=== PATIENT | male | born 1935 | race Caucasian/White ===

== ENCOUNTER 2017-11-17 13:55 | Inpatient (IN) | payer MEDICARE, OTHER ==
[2017-11-17 14:48] LABS: Basophils % (A) 0 %; Eosinophils # (A) 0.1 k/uL (0-0.7); Eosinophils % (A) 1 %; HCT 39.6 % (39.0-53.0); HGB 13.6 gm/dL (13.0-17.5); Lymphocytes # (A) 1.1 k/uL (1.0-4.8); Lymphocytes % (A) 17 %; MCH 31.9 pg (25.0-35.0); MCHC 34.3 g/dL (31.0-37.0); MCV 92.8 fL (80.0-100.0); Mean Platelet Volume 7.3; Monocytes # (A) 0.5 k/uL (0-1.0); Monocytes % (A) 8 %; Neutrophils # (A) 4.4 k/uL (1.3-7.7); Neutrophils % (A) 70 %; Platelet Count 251 k/uL (150-450); RBC 4.26 m/uL (4.30-5.90); WBC 6.3 k/uL (3.8-10.6)
[2017-11-17 14:57] LABS: Partial Thromboplastin Time 22.4 sec (22.0-30.0); Prothrombin Time 9.9 sec (9.0-12.0)
[2017-11-17 15:06] LABS: Albumin 3.6 g/dL (3.5-5.0); Calcium 9.5 mg/dL (8.4-10.2); Potassium 4.3 mmol/L (3.5-5.1); Total Bilirubin 0.9 mg/dL (0.2-1.3); Total Protein 6.3 g/dL (6.3-8.2)
--- NOTE | 2017-11-17 15:08 | CT ---
EXAMINATION TYPE: CT brain wo con DATE OF EXAM: 11/17/2017 COMPARISON: NONE HISTORY: Patient complains of multiple episodes of aphasia. CT DLP: 1869 mGycm Automated exposure control for dose reduction was used. FINDINGS: Exam limited by motion artifact. There is an area of low attenuation in the left parietal lobe which could been the basis of acute to subacute ischemia. Moderate generalized degenerative change seen. Pe riventricular low attenuation compatible with remote microvascular ischemia. Calvarium is intact. No acute hemorrhage or midline shift. Intracranial atherosclerotic changes noted . IMPRESSION: DEGENERATIVE AND NONSPECIFIC WHITE MATTER CHANGES. THERE IS A AREA OF INTERMEDIATE DENSITY WITHIN THE LEFT PARIETAL LOBE WHICH COULD REPRESENT AREA OF ACUTE TO SUBACUTE ISCHEMIA. CORRELATE CLINICALLY AN D WITH MRI WARRANTED
--- NOTE | 2017-11-17 15:09 | XR ---
EXAMINATION TYPE: XR chest 2V DATE OF EXAM: 11/17/2017 COMPARISON: NONE HISTORY: Altered mental status TECHNIQUE: Frontal and lateral views of the chest are obtained. FINDINGS: There is no pleural effusion or pneumothorax seen. Minimal patchy density present at the left lung base. The cardiac silhouette size is within normal limits. Flowing anterior osteophytes ayana ng the thoracic vertebral bodies could be indicative of underlying diffuse idiopathic skeletal hypero stosis. There are overlying cardiac leads. The osseous structures are intact. IMPRESSION: There may be some minimal basilar atelectasis or scarring.
[2017-11-17] MEDS ORDERED: ONDANSETRON 4 MG/2 ML VIAL IVP PRN (15:45)
[2017-11-17] MEDS ORDERED: NALOXONE 0.4 MG/ML 1 ML VIAL IV PRN (15:45)
--- NOTE | 2017-11-17 15:45 | ED ---
Neuro HPI - General Chief Complaint: Neuro Symptoms/Deficit Stated Complaint: speech problems Time Seen by Provider: 11/17/17 14:14 Source: patient, family Mode of arrival: ambulatory Limitations: no limitations - History of Present Illness Is the patient presenting with stroke symptoms?: Yes Initial Comments: Patient complains of trouble speaking. He had a few episodes of trouble speaking over the last couple days, and another episode earlier this morning. This morning, was the worst episode where his speech was completely garbled. Currently, he is able to speak, but does have some slight word finding problems. He denies any weakness. He has no chest pain, belly pain, back pain. He has no shortness of breath, nausea or vomiting or diaphoresis. He did not take any medication for his symptoms. He did see his doctor for this yesterday. He has no lightheadedness or dizziness. He denies syncope or presyncope. - Related Data Home Medications: Home Medications Medication Instructions Recorded Confirmed Aspirin EC [Ecotrin Low Dose] 81 mg PO DAILY 11/17/17 11/17/17 Atorvastatin [Lipitor] 40 mg PO HS 11/17/17 11/17/17 Carvedilol [Coreg] 6.25 mg PO BID 11/17/17 11/17/17 Cyanocobalamin (Vitamin B-12) 1,000 mcg PO AC-BRKFST 11/17/17 11/17/17 [Vitamin B-12] Diltiazem Cd [Cardizem Cd] 180 mg PO HS 11/17/17 11/17/17 Isosorbide Mononitrate ER [Imdur] 30 mg PO DAILY 11/17/17 11/17/17 Losartan Potassium [Cozaar] 50 mg PO HS 11/17/17 11/17/17 Multivitamins, Thera [Multivitamin 1 tab PO AC-BRKFST 11/17/17 11/17/17 (formulary)] Allergies/Adverse Reactions: Allergies Allergy/AdvReac Type Severity Reaction Status Date / Time No Known Allergies Allergy Verified 11/17/17 15:25 Review of Systems ROS Statement: Those systems with pertinent positive or pertinent negative responses have been documented in the HPI. ROS Other: All systems not noted in ROS Statement are negative. General Exam Limitations: no limitations General appearance: alert, in no apparent distress Head exam: Present: atraumatic, normocephalic, normal inspection Eye exam: Present: normal appearance, PERRL, EOMI. Absent: scleral icterus, conjunctival injection, periorbital swelling ENT exam: Present: normal exam, mucous membranes moist Neck exam: Present: normal inspection. Absent: tenderness, meningismus, lymphadenopathy Respiratory exam: Present: normal lung sounds bilaterally. Absent: respiratory distress, wheezes, rales, rhonchi, stridor Cardiovascular Exam: Present: regular rate, normal rhythm, normal heart sounds. Absent: systolic murmur, diastolic murmur, rubs, gallop, clicks GI/Abdominal exam: Present: soft, normal bowel sounds. Absent: distended, tenderness, guarding, rebound, rigid Extremities exam: Present: normal inspection, full ROM, normal capillary refill. Absent: tenderness, pedal edema, joint swelling, calf tenderness Back exam: Present: normal inspection Neurological exam: Present: alert, oriented X3, CN II-XII intact Psychiatric exam: Present: normal affect, normal mood Skin exam: Present: warm, dry, intact, normal color. Absent: rash Stroke MDM - Lab Data Result diagrams: 11/17/17 14:31 11/17/17 14:31 Lab Results 11/17/17 11/17/17 11/17/17 Range/Units 14:31 14:31 14:31 WBC 6.3 (3.8-10.6) k/uL RBC 4.26 L (4.30-5.90) m/uL Hgb 13.6 (13.0-17.5) gm/dL Hct 39.6 (39.0-53.0) % MCV 92.8 (80.0-100.0) fL MCH 31.9 (25.0-35.0) pg MCHC 34.3 (31.0-37.0) g/dL RDW 13.0 (11.5-15.5) % Plt Count 251 (150-450) k/uL Neutrophils % 70 % Lymphocytes % 17 % Monocytes % 8 % Eosinophils % 1 % Basophils % 0 % Neutrophils # 4.4 (1.3-7.7) k/uL Lymphocytes # 1.1 (1.0-4.8) k/uL Monocytes # 0.5 (0-1.0) k/uL Eosinophils # 0.1 (0-0.7) k/uL Basophils # 0.0 (0-0.2) k/uL PT 9.9 (9.0-12.0) sec INR 1.0 (<1.2) APTT 22.4 (22.0-30.0) sec Sodium 138 (137-145) mmol/L Potassium 4.3 (3.5-5.1) mmol/L Chloride 104 (98-107) mmol/L Carbon Dioxide 25 (22-30) mmol/L Anion Gap 9 mmol/L BUN 19 (9-20) mg/dL Creatinine 1.00 (0.66-1.25) mg/dL Est GFR (CKD-EPI)AfAm 81 (>60 ml/min/1.73 sqM) Est GFR (CKD-EPI)NonAf 70 (>60 ml/min/1.73 sqM) Glucose 103 H (74-99) mg/dL Calcium 9.5 (8.4-10.2) mg/dL Total Bilirubin 0.9 (0.2-1.3) mg/dL AST 24 (17-59) U/L ALT 31 (21-72) U/L Alkaline Phosphatase 81 (38-126) U/L Troponin I (0.000-0.034) ng/mL Total Protein 6.3 (6.3-8.2) g/dL Albumin 3.6 (3.5-5.0) g/dL 11/17/17 Range/Units 14:31 WBC (3.8-10.6) k/uL RBC (4.30-5.90) m/uL Hgb (13.0-17.5) gm/dL Hct (39.0-53.0) % MCV (80.0-100.0) fL MCH (25.0-35.0) pg MCHC (31.0-37.0) g/dL RDW (11.5-15.5) % Plt Count (150-450) k/uL Neutrophils % % Lymphocytes % % Monocytes % % Eosinophils % % Basophils % % Neutrophils # (1.3-7.7) k/uL Lymphocytes # (1.0-4.8) k/uL Monocytes # (0-1.0) k/uL Eosinophils # (0-0.7) k/uL Basophils # (0-0.2) k/uL PT (9.0-12.0) sec INR (<1.2) APTT (22.0-30.0) sec Sodium (137-145) mmol/L Potassium (3.5-5.1) mmol/L Chloride (98-107) mmol/L Carbon Dioxide (22-30) mmol/L Anion Gap mmol/L BUN (9-20) mg/dL Creatinine (0.66-1.25) mg/dL Est GFR (CKD-EPI)AfAm (>60 ml/min/1.73 sqM) Est GFR (CKD-EPI)NonAf (>60 ml/min/1.73 sqM) Glucose (74-99) mg/dL Calcium (8.4-10.2) mg/dL Total Bilirubin (0.2-1.3) mg/dL AST (17-59) U/L ALT (21-72) U/L Alkaline Phosphatase (38-126) U/L Troponin I <0.012 (0.000-0.034) ng/mL Total Protein (6.3-8.2) g/dL Albumin (3.5-5.0) g/dL - Medical Decision Making Patient presents with several episodes of trouble speaking, mostly resolved at this time. However this current episode began greater than 5 hours ago. At this time he is not a TPA candidate. His CT does show a subacute infarct. I will obtain a neurology consultation. He will be admitted to the hospital. 11/17/17 15:44 Twelve-lead EKG interpreted by me as showing ventricular rate 68 bpm, normal SD interval, positive for left bundle branch block, no ST elevation or depression, interpreted by me as normal sinus rhythm. Past Medical History Past Medical History: Coronary Artery Disease (CAD), Chest Pain / Angina, Hyperlipidemia, Hypertension, Myocardial Infarction ([place]), Sleep Apnea/CPAP/BIPAP History of Any Multi-Drug Resistant Organisms: None Reported Past Psychological History: No Psychological Hx Reported Smoking Status: Never smoker Past Alcohol Use History: None Reported Past Drug Use History: None Reported Course Vital Signs 11/17/17 11/17/17 13:58 14:25 Temperature 98.4 F Pulse Rate 64 70 Respiratory 20 19 Rate Blood Pressure 140/93 163/75 O2 Sat by Pulse 98 97 Oximetry Disposition Clinical Impression: Cerebrovascular accident Disposition: ADMITTED IP TO THIS HOSP Condition: Serious Referrals: Cm Bonilla MD [Primary Care Provider] - 1-2 days Time of Disposition: 15:45
[2017-11-17] MEDS: CARVEDILOL 6.25 MG TAB PO SCH (18:51)
[2017-11-17] MEDS: ASPIRIN 81 MG PO SCH (18:51)
--- NOTE | 2017-11-17 21:17 | P.CNNES ---
History of Present Illness Consult date: 11/17/17 History of Present Illness: The patient an 81-year-old right-handed white male who states that Thursday while he was chatty with some neighbors he noticed some speech slurring which lasted for a few sentences about 6 seconds. The following day he had another episode was speaking to his grandson. His grandson is 13 years old and did not notice it but the patient realized that he had the same verbal slur that occurred the previous day. On Thursday he had another episode in front of his which lasted for about 30 seconds of slurred speech. His called his primary care physician and his PCP did see him that evening and decided to do outpatient carotid ultrasound. Today however the patient had a continued episode and it was decided that he should go to the emergency room. He has not had any further episodes. He states that he's never had slurred speech in the past. He takes baby aspirin daily. There is no history of stroke. He does have coronary artery disease hypertension hyperlipidemia. He denied any focal weakness numbness visual loss or any other neurologic complaint. He was able to read and write without difficulty. In the emergency room the patient had a CAT scan of the brain. This showed nonspecific white matter changes as well as an area of density within the left parietal lobe. Review of Systems Constitutional: Denies chills, Denies fever Cardiovascular: Denies chest pain, Denies shortness of breath Respiratory: Denies cough Musculoskeletal: Denies myalgias Neurological: Denies numbness, Denies weakness Psychiatric: Denies anxiety, Denies depression Past Medical History Past Medical History: Coronary Artery Disease (CAD), Chest Pain / Angina, Hyperlipidemia, Hypertension, Myocardial Infarction ([place]), Sleep Apnea/CPAP/BIPAP History of Any Multi-Drug Resistant Organisms: None Reported Past Psychological History: No Psychological Hx Reported Smoking Status: Never smoker Past Alcohol Use History: None Reported Past Drug Use History: None Reported Medications and Allergies Home Medications Medication Instructions Recorded Confirmed Type Aspirin EC [Ecotrin Low Dose] 81 mg PO DAILY 11/17/17 11/17/17 History Atorvastatin [Lipitor] 40 mg PO HS 11/17/17 11/17/17 History Carvedilol [Coreg] 6.25 mg PO BID 11/17/17 11/17/17 History Cyanocobalamin (Vitamin B-12) 1,000 mcg PO AC-BRKFST 11/17/17 11/17/17 History [Vitamin B-12] Diltiazem Cd [Cardizem Cd] 180 mg PO HS 11/17/17 11/17/17 History Isosorbide Mononitrate ER [Imdur] 30 mg PO DAILY 11/17/17 11/17/17 History Losartan Potassium [Cozaar] 50 mg PO HS 11/17/17 11/17/17 History Multivitamins, Thera [Multivitamin 1 tab PO AC-BRKFST 11/17/17 11/17/17 History (formulary)] Allergies Allergy/AdvReac Type Severity Reaction Status Date / Time No Known Allergies Allergy Verified 11/17/17 15:25 Physical Examination - Vital Signs Vital Signs: Vital Signs Temp Pulse Resp BP Pulse Ox 11/17/17 20:00 68 18 150/68 98 11/17/17 19:20 65 18 148/72 96 11/17/17 17:27 64 18 165/79 97 11/17/17 14:25 70 19 163/75 97 11/17/17 13:58 98.4 F 64 20 140/93 98 Intake and Output 11/17/17 11/17/17 11/17/17 06:59 14:59 22:59 Other: Weight 106.594 kg Patient Weight 11/18/17 06:59 Weight 106.594 kg - Constitutional General appearance: average body habitus, cooperative - EENT EENT: PERRL, hearing intact, vision intact - Respiratory Respiratory: chest non-tender, lungs clear - Cardiovascular Cardiovascular: regular rate, normal S1 - Integumentary Integumentary: normal - Neurologic Mental status he was awake alert and oriented 3 he was able to do simple calculations there is no a aphasia but he had some difficulty with repetition next Cranial2 through 12 are grossly intact next Motor examination revealed no focal weakness X Coordination was intact next Deep tendon reflexes symmetric next Plantar response was equivocal bilaterally Cranial nerve examination: PERRL, EOMI, VFF, V1/V2/V3 grossly intact, face symmetric, tongue midline Speech examination: intact Sensorimotor examination: intact Detailed motor examination: grossly full strength in all extremities - Psychiatric Psychiatric: mood/affect appropriate Results - Laboratory Findings CBC and BMP: 11/17/17 14:31 11/17/17 14:31 Abnormal Lab Findings: Abnormal Labs 11/17/17 11/17/17 14:31 14:31 RBC 4.26 L Glucose 103 H Assessment and Plan (1) Cerebrovascular accident Current Visit: Yes Status: Acute SNOMED Code(s): 445612523 Plan: The patient is a 81-year-old man who has been having intermittent episodes of slurred speech over the last several days. Resent to the emergency room today. Currently his neurologic examination is nonfocal however he does have some hesitancy and's speech at times with difficulty with repetition. Patient may have had a small stroke stroke in the left cortical region. Recommend MRI scan of the brain. Recommend carotid ultrasound and echocardiogram. Add Plavix to his current regimen ,continue close neuro checks
[2017-11-17 21:25] VITALS: BMI 33.6
[2017-11-17] MEDS: FAMOTIDINE 20 MG TAB PO SCH (23:24)
[2017-11-17] MEDS: DILTIAZEM CD 180 MG CAP.ER.24H PO SCH (23:24)
[2017-11-17] MEDS: ATORVASTATIN 40 MG TAB PO SCH (23:24)
[2017-11-17] MEDS: CLOPIDOGREL 75 MG TAB PO SCH (23:25)
[2017-11-17] MEDS: LOSARTAN 50 MG TAB PO SCH (23:25)
[2017-11-18] MEDS: CARVEDILOL 6.25 MG TAB PO SCH ×2 (06:07→16:05)
[2017-11-18] MEDS: CLOPIDOGREL 75 MG TAB PO SCH (08:40)
[2017-11-18] MEDS: FAMOTIDINE 20 MG TAB PO SCH ×2 (08:40→21:44)
[2017-11-18] MEDS: ASPIRIN 81 MG PO SCH (08:40)
--- NOTE | 2017-11-18 08:57 | MR ---
EXAMINATION TYPE: MR brain wo con DATE OF EXAM: 11/18/2017 COMPARISON: CT brain dated 11/17/2017 HISTORY: Stroke TECHNIQUE: Multiplanar, multisequence images of the brain and brainstem is performed without IV contrast. FINDINGS: Diffusion weighted images demonstrate a small focal area of restricted diffusion within the left parietal lobe measuring 1.1 cm with corresponding low ADC signal. Relative degree of restricted diffusion is low. Therefore this may be acute to subacute. This involves both bobby and white matter. Wedge-shaped area of T2/IR hyperintense edema is also seen. On T2-weighted axial sequences image #20 there is involvement of both the bobby and white matter again suggesting infarct rather than neoplasm . No T1 hyperintensity is seen to suggest acute hemorrhage. There is no extra-axial fluid collection. Numerous confluent areas of T2/IR hyperintensity are scatte red throughout the periventricular subcortical white matter, most commonly related to sequela of natural science curator jocelyn microangiopathy. These become most confluent in the periatrial white matter. Basilar artery and i nternal carotid artery flow voids are maintained as are the middle cerebral artery flow voids. Smalle r flow voids are difficult to visualize. Within the left cerebellar hemisphere there is a centrally T 2 hyperintense and FLAIR hypointense area with subtle T2 hyperintensity that could represent deep dev elop mental venous anomaly or prior infarct. Mild paranasal sinus mucosal thickening is seen throughout the paranasal sinuses. Mastoid air cells a re well aerated. The ventricular system and cisternal spaces are symmetrically prominent compatible w ith age-related volume loss. Midline structures demonstrate normal morphology. The craniocervical junction appears within normal limits. The dural venous sinuses appear patent. The visualized sinuses are clear and the globes are i ntact. IMPRESSION: 1. Findings most consistent with an acute to subacute small wedge-shaped left parietal infarct withou t hemorrhagic transformation. Given this probable evolving infarct has some lobular borders and there are only few images demonstrating both bobby-white matter involvement short-term follow-up enhanced M RI is recommended in 3-6 weeks to ensure no underlying mass. 2. Moderate burden nonspecific white matter change, most commonly on the basis of chronic microangiop athy and age-related cerebral atrophy. 3. Mild pansinusitis.
--- NOTE | 2017-11-18 09:41 | US ---
EXAMINATION TYPE: US carotid duplex BILAT DATE OF EXAM: 11/18/2017 COMPARISON: CLINICAL HISTORY: Stroke. Episodes of slurred speech EXAM MEASUREMENTS: RIGHT: Peak Systolic Velocity (PSV) cm/sec ----- Right CCA: 60.1 ----- Right ICA: 72.4 ----- Right ECA: 72.4 ICA/CCA ratio: 1.2 RIGHT: End Diastole cm/sec ----- Right CCA: 15.6 ----- Right ICA: 21.9 ----- Right ECA: 14.2 LEFT: Peak Systolic Velocity (PSV) cm/sec ----- Left CCA: 73.6 ----- Left ICA: 73.5 ----- Left ECA: 65.8 ICA/CCA ratio: 1.0 LEFT: End Diastole cm/sec ----- Left CCA: 18.0 ----- Left ICA: 27.4 ----- Left ECA: 12.0 VERTEBRALS (direction of flow): Right Vertebral: Antegrade Left Vertebral: Antegrade Rhythm: Normal Bilateral wall thickening. No elevated velocities or significant stenosis. Plaque seen in left bulb. Grayscale, color Doppler, spectral Doppler imaging performed of the carotid arteries IMPRESSION: No hemodynamic significant stenosis of the proximal internal carotid arteries bilaterall y by Doppler criteria, an indirect measurement of carotid stenosis
--- NOTE | 2017-11-18 15:11 | P.HPIM ---
History of Present Illness H&P Date: 11/18/17 Chief Complaint: slurring of speech 81 years old male with past medical history of coronary artery disease , hyperlipidemia, hypertension history of sleep apnea presents in with complaints of slurring of speech and difficulty finding words that started on Thursday. Patient noticed difficulties making words on Thursday that lasted a few seconds. On Thursday patient felt that he had similar symptoms with slurring of speech that improved by itself. Since he continued to have similar episode that lasted longer his called the primary care physician who recommended ultrasound of the carotid. Since patient continued to have these episode he decided to come to the ER. Carotid Dopplers were negative for any occlusion. CT brain was positive for subacute density in the left parietal lobe. 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 Since infarct had some lobular borders. Was a concern for underlying mass. A follow-up MRI was recommended in 3-6 weeks. On my evaluation, patient didn't have slurring of speech. He denies any sensory or motor deficit. No coordination sent seen. Patient is able to walk without any difficulty. He denies any confusion or history of seizure. Cardiology is consulted today for evaluation for cardioembolic stroke. EKG suggested normal sinus rhythm with left bundle branch block with no sign of arrhythmia seen on telemetry. Review of Systems Constitutional: Denies chills, Denies fever, Denies lethargy, Denies malaise, Denies poor appetite, Denies weakness, Denies weight loss Eyes: denies decreased vision, denies diplopia, denies discharge, denies pain Ears: deny: decreased hearing Ears, nose, mouth and throat: Denies dental pain, Denies headache, Denies nasal discharge, Denies nose pain Cardiovascular: Denies chest pain, Denies decreased exercise tolerance, Denies edema, Denies high blood pressure, Denies irregular heart beat, Denies palpitations, Denies paroxysmal nocturnal dyspnea, Denies rapid heart beat, Denies shortness of breath Respiratory: Denies congestion, Denies cough, Denies cough with sputum, Denies dyspnea, Denies home oxygen, Denies wheezing Gastrointestinal: Denies abdominal pain, Denies change in bowel habits, Denies coffee ground emesis, Denies early satiety, Denies excessive gas, Denies heartburn, Denies hematemesis, Denies hematochezia, Denies loss of appetite, Denies nausea, Denies vomiting Genitourinary: Denies dysuria, Denies flank pain, Denies kidney stones, Denies menorrhagia, Denies urgency, Denies urinary frequency Musculoskeletal: Denies gait dysfunction, Denies limitation of motion, Denies morning stiffness, Denies muscle cramps Integumentary: Denies rash, Denies wounds, Denies brittle nails, Denies change in hair/nails, Denies darkening of skin Neurological: Denies balance difficulties,endorses change in speech, Denies double vision, Denies gait dysfunction, Denies loss of vision, Denies motor disturbance, Denies numbness, Denies paralysis, Denies paresthesias, Denies seizures Psychiatric: Denies anxiety, Denies depression Endocrine: Denies excessive sweating, Denies excessive thirst, Denies high blood sugars, Denies palpitations Hematologic/Lymphatic: Denies easy bruising, Denies lymphadenopathy Past Medical History Past Medical History: Coronary Artery Disease (CAD), Chest Pain / Angina, Hyperlipidemia, Hypertension, Sleep Apnea/CPAP/BIPAP History of Any Multi-Drug Resistant Organisms: None Reported Past Surgical History: Joint Replacement Additional Past Surgical History / Comment(s): CLAUDINE KNEE REPLACEMENT Past Anesthesia/Blood Transfusion Reactions: No Reported Reaction Past Psychological History: No Psychological Hx Reported Smoking Status: Never smoker Past Alcohol Use History: None Reported Past Drug Use History: None Reported - Past Family History Father Family Medical History: Pneumonia, Prostate Disorder Mother Family Medical History: CVA/TIA, Myocardial Infarction ([place]) Medications and Allergies Home Medications Medication Instructions Recorded Confirmed Type Aspirin EC [Ecotrin Low Dose] 81 mg PO DAILY 11/17/17 11/17/17 History Atorvastatin [Lipitor] 40 mg PO HS 11/17/17 11/17/17 History Carvedilol [Coreg] 6.25 mg PO BID 11/17/17 11/17/17 History Cyanocobalamin (Vitamin B-12) 1,000 mcg PO AC-BRKFST 11/17/17 11/17/17 History [Vitamin B-12] Diltiazem Cd [Cardizem Cd] 180 mg PO HS 11/17/17 11/17/17 History Isosorbide Mononitrate ER [Imdur] 30 mg PO DAILY 11/17/17 11/17/17 History Losartan Potassium [Cozaar] 50 mg PO HS 11/17/17 11/17/17 History Multivitamins, Thera [Multivitamin 1 tab PO AC-BRKFST 11/17/17 11/17/17 History (formulary)] Allergies Allergy/AdvReac Type Severity Reaction Status Date / Time No Known Allergies Allergy Verified 11/17/17 15:25 Physical Exam Vitals: Vital Signs Temp Pulse Pulse Resp BP BP Pulse Ox 11/18/17 12:00 97.6 F 60 16 144/71 95 11/18/17 11:49 56 L 11/18/17 08:00 97.4 F L 56 L 18 147/69 100 11/18/17 04:00 97.5 F L 64 18 117/73 96 11/17/17 23:49 57 L 18 11/17/17 23:45 97.8 F 57 L 18 157/78 94 L 11/17/17 21:20 99.1 F 66 18 156/84 93 L 11/17/17 20:00 68 18 150/68 98 11/17/17 19:20 65 18 148/72 96 11/17/17 17:27 64 18 165/79 97 Intake and Output 11/17/17 11/18/17 11/18/17 22:59 06:59 14:59 Other: # Voids 2 Weight 109.5 kg 109.5 kg - Constitutional General appearance: cooperative, no acute distress, obese - EENT Eyes: anicteric sclerae, PERRLA, normal appearance ENT: hearing grossly normal - Neck Neck: no lymphadenopathy, normal ROM, no other, no rigidity, no stridor, no thyromegaly - Respiratory Respiratory: bilateral: CTA, negative: diminished, dullness, rales, rhonchi - Cardiovascular Rhythm: regular Heart sounds: normal: S1, S2 Abnormal Heart Sounds: no systolic murmur, no diastolic murmur, no rub, no S3 Gallop, no S4 Gallop, no click, no other - Gastrointestinal General gastrointestinal: normal bowel sounds, soft - Integumentary Integumentary: no rash - Neurologic Neurologic: CNII-XII intact positive for dysarthria, no sensory or motor deficit. [id number] test normal normal Babinski - Musculoskeletal Musculoskeletal: gait normal, strength equal bilaterally - Psychiatric Psychiatric: A&O x's 3, appropriate affect Results CBC & Chem 7: 11/17/17 14:31 11/17/17 14:31 Labs: Abnormal Lab Results - Last 24 Hours (Table) 11/17/17 Range/Units 14:31 Glucose 103 H (74-99) mg/dL Thrombosis Risk Factor Assmnt - DVT/VTE Prophylaxis DVT/VTE Prophylaxis: Pharmacologic Prophylaxis ordered - Choose All That Apply Any of the Below Risk Factors Present?: Yes Each Factor Represents 1 point: Swollen legs (current) Other Risk Factors: No Other congenital or acquired thrombophilia - If yes, enter type in comment: Yes Each Risk Factor Represents 5 Points: Stroke (< 1 month) Thrombosis Risk Factor Assessment Total Risk Factor Score: 6 Thrombosis Risk Factor Assessment Level: High Risk Assessment and Plan Plan: #1 left parietal cerebral vascular event - MRI positive for left parietal wedge- shaped infarct. Repeat MRI is recommended in 3-6 weeks for possible follow-up for underlying mass. Carotid Doppler negative for any occlusion. Echo pending. Cardiology consult placed for cardio embolic stroke. EKG negative for any arrhythmia. Normal sinus rhythm with left bundle branch block present. Patient may potentially need a RAUL. No history of DVT in the past. Continue aspirin and statin. Plavix initiated by Dr. Shirley #2 hypertension continue losartan 50 mg daily at bedtime along with Cardizem 180 mg daily at bedtime #3 history of coronary artery disease though patient never had a myocardial infarction. Continue Coreg, aspirin, Lipitor. #4 GI prophylaxis with Pepcid 20 mg twice a day #5 DVT prophylaxis with heparin 5000 every 12 #6 CODE STATUS full code Disposition likely discharge tomorrow
--- NOTE | 2017-11-18 17:30 | ECHOF ---
Referral Reason:Stroke MEASUREMENTS -------- HEIGHT: 180.3 cm WEIGHT: 109.3 kg BP: 117/73 RVIDd: 3.4 cm (< 3.3) IVSd: 1.3 cm (0.6 - 1.1) LVIDd: 4.5 cm (3.9 - 5.3) LVPWd: 1.3 cm (0.6 - 1.1) IVSs: 1.6 cm LVIDs: 3.9 cm LVPWs: 1.4 cm LA Diam: 4.0 cm (2.7 - 3.8) LAESV Index (A-L): 21.64 ml/m Ao Diam: 3.3 cm (2.0 - 3.7) AV Cusp: 1.6 cm (1.5 - 2.6) MV EXCURSION: 12.039 mm (> 18.000) MV EF SLOPE: 50 mm/s (70 - 150) EPSS: 0.4 cm MV E Elijah: 1.00 m/s MV DecT: 215 ms MV A Elijah: 0.72 m/s MV E/A Ratio: 1.38 FINDINGS -------- Sinus rhythm. This was a technically adequate study. The left ventricular size is normal. There is mild concentric left ventricular hypertrophy. Overa ll left ventricular systolic function is low-normal with, an EF between 50 - 55 %. The right ventricle is mildly enlarged. Normal LA size by volume 22+/-6 ml/m2. The right atrium is normal in size. There is mild aortic valve sclerosis. The mitral valve leaflets are mildly thickened. Mild mitral annular calcification present. The tricuspid valve appears structurally normal. There is no pulmonic regurgitation present. The aortic root size is normal. Normal inferior vena cava with normal inspiratory collapse consistent with estimated right atrial pre ssure of 5 mmHg. There is no pericardial effusion. CONCLUSIONS -------- 1. Sinus rhythm. 2. This was a technically adequate study. 3. The left ventricular size is normal. 4. There is mild concentric left ventricular hypertrophy. 5. Overall left ventricular systolic function is low-normal with, an EF between 50 - 55 %. 6. The right ventricle is mildly enlarged. 7. Normal LA size by volume 22+/-6 ml/m2. 8. The right atrium is normal in size. 9. There is mild aortic valve sclerosis. 10. The mitral valve leaflets are mildly thickened. 11. Mild mitral annular calcification present. 12. The tricuspid valve appears structurally normal. 13. There is no pulmonic regurgitation present. 14. The aortic root size is normal. 15. Normal inferior vena cava with normal inspiratory collapse consistent with estimated right atrial pressure of 5 mmHg. 16. There is no pericardial effusion. MATHEMATICS FACULTY MEMBER: Keyona Stiles RDCS
--- NOTE | 2017-11-18 20:49 | P.PN ---
Subjective Progress Note Date: 11/18/17 The patient is an 81-year-old man with history of intermittent speech disturbance for the past 5 days. Had an MRI today which showed an area of an possible infarction in the left parietal lobe. The patient is doing about the same. He has difficulty at times with word finding and has difficulty with repetition. He denies any other complaints such as weakness numbness visual changes dizziness or headache. His carotid ultrasound was unremarkable and his echocardiogram did not show any signs of thrombus. The patient is currently on aspirin as well as Plavix. He has no new complaints. Objective - Vital Signs Vital signs: Vital Signs Temp 97.5 F L 11/18/17 16:00 Pulse 62 11/18/17 16:00 Resp 18 11/18/17 16:00 BP 173/86 11/18/17 16:00 Pulse Ox 95 11/18/17 16:00 Intake & Output 11/18/17 11/18/17 11/19/17 06:59 18:59 06:59 Intake Total 240 Balance 240 Weight 109.5 kg Intake: Oral 240 Other: # Voids 2 - Constitutional General appearance: Present: average body habitus, cooperative - EENT Eyes: Present: EOMI, PERRLA - Neurologic Neurologic: Present: CNII-XII intact - Musculoskeletal Musculoskeletal: Present: strength equal bilaterally - Psychiatric Psychiatric: Present: A&O x's 3, intact judgment & insight (He does have some intermittent mild expressive aphasia) - Labs CBC & Chem 7: 11/17/17 14:31 11/17/17 14:31 Assessment and Plan (1) Cerebrovascular accident Current Visit: Yes Status: Acute SNOMED Code(s): 196693456 Plan: The patient has had a left parietal infarct. Radiology recommends follow-up study in 3 weeks. We will do an MRA of the carotid and vertebral arteries. His carotid ultrasound and echocardiogram were unremarkable. He is tolerating the addition of Plavix to his baby aspirin regimen. Will consult speech therapist the patient will have MRI of the brain with gadolinium scheduled outpatient in 2-3 weeks
[2017-11-18] MEDS: DILTIAZEM CD 180 MG CAP.ER.24H PO SCH (21:44)
[2017-11-18] MEDS: ATORVASTATIN 40 MG TAB PO SCH (21:44)
[2017-11-18] MEDS: LOSARTAN 50 MG TAB PO SCH (21:44)
[2017-11-18] MEDS: HEPARIN SODIUM,PORCINE 5,000 UNIT/ML 1 ML VIAL SQ SCH (21:45)
--- NOTE | 2017-11-19 08:33 | MR ---
EXAMINATION TYPE: MR angio head/neck wo con DATE OF EXAM: 11/19/2017 COMPARISON: MRI brain 11/18/2017 and carotid ultrasound 11/18/2017 HISTORY: 81-year-old male further evaluation after Stroke TECHNIQUE: Time of flight images focusing on the [place] of [place] as well as the neck carotid vascula ture were performed without contrast.. 2-D and 3-D postprocessing imaging is performed. FINDINGS: HEAD: No significant stenosis, arterial occlusion, or aneurysmal change is seen. NECK: Bovine configuration to the aortic arch. The common carotid and bilateral internal carotid arteries appear widely patent. The bilateral vertebral arteries also appear widely patent allowing for noncontrast technique. IMPRESSION: 1. Head: No significant stenosis, arterial occlusion, or aneurysmal change is seen. 2. Neck: Widely patent common and internal carotid arteries. The vertebral arteries also appear widel y patent allowing for noncontrast technique.
[2017-11-19] MEDS: HEPARIN SODIUM,PORCINE 5,000 UNIT/ML 1 ML VIAL SQ SCH (09:38)
[2017-11-19] MEDS: CARVEDILOL 6.25 MG TAB PO SCH (09:38)
[2017-11-19] MEDS: ASPIRIN 81 MG PO SCH (09:38)
[2017-11-19] MEDS: FAMOTIDINE 20 MG TAB PO SCH (09:38)
[2017-11-19] MEDS: CLOPIDOGREL 75 MG TAB PO SCH (09:38)
[2017-11-19 10:05] VITALS: TEMP 97.1
[2017-11-19 11:32] VITALS: BP 127/71; PULSE 62; RESP 18
[2017-11-19] MEDS ORDERED: ceFAZolin 1,000 MG in DEXTROSE/WATER 1 50ML.BAG IVPB STA (11:38)
--- NOTE | 2017-11-19 11:59 | P.DS ---
Providers Date of admission: 11/17/17 15:45 Attending physician: Sheila Alicia MD Consults: 11/17/17 15:46 Consult Physician Routine Consulting Provider: Tae Shirley Consult Reason/Comments: stroke Do you want consulting provider notified?: Yes 11/18/17 11:37 Consult Physician Routine Consulting Provider: Ruddy Ramsay Consult Reason/Comments: acute pariatal stroke Do you want consulting provider notified?: Yes Primary care physician: [facility] Course: 81 years old male with past medical history of coronary artery disease , hyperlipidemia, hypertension history of sleep apnea presents in with complaints of slurring of speech and difficulty finding words that started on Thursday. Patient noticed difficulties making words on Thursday that lasted a few seconds. On Thursday patient felt that he had similar symptoms with slurring of speech that improved by itself. Since he continued to have similar episode that lasted longer his called the primary care physician who recommended ultrasound of the carotid. Since patient continued to have these episode he decided to come to the ER. Carotid Dopplers were negative for any occlusion. CT brain was positive for subacute density in the left parietal lobe. 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 Since infarct had some lobular borders. Was a concern for underlying mass. A follow-up MRI was recommended in 3-6 weeks. On my evaluation, patient didn't have slurring of speech. He denies any sensory or motor deficit. No coordination sent seen. Patient is able to walk without any difficulty. He denies any confusion or history of seizure. Cardiology is consulted today for evaluation for cardioembolic stroke. EKG suggested normal sinus rhythm with left bundle branch block with no sign of arrhythmia seen on telemetry. 11/19 Carotid ultrasound was remarkable, echocardiogram did not show signs of thrombus. Neurology consult appreciated, recommends MRA of the carotid and vertebral arteries continue Plavix and aspirin and MRI of brain as outpatient. Discharge diagnoses #1 left parietal cerebral vascular event #2 hypertension #3 history of coronary artery disease The above impression and plan of care have been discussed and directed by signing physician. Bianca Sebastian nurse practitioner acting as scribe for signing physician. Patient Condition at Discharge: Good Plan - Discharge Summary Discharge Rx Participant: No New Discharge Prescriptions: New Clopidogrel [Plavix] 75 mg PO DAILY #30 tab Continue Multivitamins, Thera [Multivitamin (formulary)] 1 tab PO AC-BRKFST Losartan Potassium [Cozaar] 50 mg PO HS Isosorbide Mononitrate ER [Imdur] 30 mg PO DAILY Diltiazem Cd [Cardizem CD] 180 mg PO HS Carvedilol [Coreg] 6.25 mg PO BID Aspirin EC [Ecotrin Low Dose] 81 mg PO DAILY Cyanocobalamin (Vitamin B-12) [Vitamin B-12] 1,000 mcg PO AC-BRKFST Atorvastatin [Lipitor] 40 mg PO HS Discharge Medication List Aspirin EC [Ecotrin Low Dose] 81 mg PO DAILY 11/17/17 [History] Atorvastatin [Lipitor] 40 mg PO HS 11/17/17 [History] Carvedilol [Coreg] 6.25 mg PO BID 11/17/17 [History] Cyanocobalamin (Vitamin B-12) [Vitamin B-12] 1,000 mcg PO AC-BRKFST 11/17/17 [ History] Diltiazem Cd [Cardizem CD] 180 mg PO HS 11/17/17 [History] Isosorbide Mononitrate ER [Imdur] 30 mg PO DAILY 11/17/17 [History] Losartan Potassium [Cozaar] 50 mg PO HS 11/17/17 [History] Multivitamins, Thera [Multivitamin (formulary)] 1 tab PO AC-BRKFST 11/17/17 [ History] Clopidogrel [Plavix] 75 mg PO DAILY #30 tab 11/19/17 [Rx] Follow up Appointment(s)/Referral(s): Cm Bonilla MD [Primary Care Provider] - 11/26/17 10:30 am () Yasmin Shirley MD [STAFF PHYSICIAN] - 3 Weeks (Spoke to receptionist clerk. She will call you with an appointment time this afternoon. follow up with MRI in 4 weeks ) Alcides Reynoso MD [REFERRING] - 1 Week Patient Instructions/Handouts: Transesophageal Echocardiogram (DC), Cardiac Loop Recorder Insertion (DC), Stroke (DC) Discharge Disposition: HOME SELF-CARE
[2017-11-19] MEDS ORDERED: SODIUM CHLORIDE 0.9% 250 ML IV ONE (12:20)
[2017-11-19] MEDS ORDERED: MIDAZOLAM 2 MG/2 ML VIAL ONE (12:37)
[2017-11-19] MEDS ORDERED: MIDAZOLAM 2 MG/2 ML VIAL IV ONE (12:39)
[2017-11-19] MEDS ORDERED: LIDOCAINE 2% INJ 20 MG/ML SQ ONE (12:41)
--- NOTE | 2017-11-19 12:53 | CONS ---
CONSULTATION Mr. Vickers was admitted with a stroke. He had difficulty with his speech and he was evaluated by Neurology. The initial CT of the brain on 11/17 when he was admitted, shows an intermediate density within the left parietal lobe, which could represent an area of acute ischemia. His ECG showed sinus rhythm with a left bundle branch block and his telemetry has not shown any evidence for atrial fibrillation. He had an MRI of the brain the next day, which is yesterday and this showed acute/subacute small wedge- shaped left parietal infarct without hemorrhagic transformation. PAST HISTORY: He has a kettle coordinator at [facility], Dr. Jolly Reynoso who he sees on a regular basis, saw about a week back. His symptoms include trouble speaking and he cannot get his words out, it is completely garbled. He denies any chest discomfort, no undue shortness of breath. No dizziness or lightheadedness, coronary artery disease, history of myocardial infarction, obstructive sleep apnea, using a BiPAP mask, hypertension. MEDICATIONS: At Home included 81 mg of aspirin, atorvastatin 40 mg daily, carvedilol 6.25 mg twice daily. He also takes diltiazem 180 mg q.h.s., isosorbide, losartan, and multivitamins. ALLERGIES: No known drug allergies. REVIEW OF SYSTEMS: No fever, chills, or rigors. No cough or expectoration. No nausea, vomiting, diarrhea. No hematuria or dysuria. He has had a recent stroke and he is having great difficulty with his speech. No musculoskeletal complaints. PHYSICAL EXAMINATION: On examination, his blood pressure is 127/71 mmHg, pulse rate in the 60s, afebrile 97.1 degrees Fahrenheit, and respirations are normal. He looks comfortable. He is unable to express himself. He can barely gives a history. The history is mostly available from his . Breath sounds are equal bilaterally. No rhonchi, no crackles. Heart sounds S1, S2 normal. No murmurs, no gallops, no rub. ABDOMEN: Soft, nontender. Extremities are warm. IMPRESSION: Embolic stroke, mild carotid arthrosclerosis, Patient is on aspirin, statins. He has known coronary artery disease and suggested from a cardiac standpoint, this gentleman should have a loop monitor implanted since he has had a cryptogenic stroke. He is on medical treatment for carotid atherosclerosis. He has no significant carotid atherosclerosis. His LDL is 96. TSH is normal. Cardiac enzymes are normal. Electrolytes are normal. Hemoglobin is normal. I would suggest increasing the dose of atorvastatin to 80 mg p.o. daily. Continuing anti-platelet therapy. Neurology has recommended dual antiplatelet therapy. Atrial fibrillation should be ruled out H the atrial fibrillation is a definite concern here and I am recommending implantation of a loop monitor to look for silent episodes of atrial fibrillation which could explain an embolic stroke. If this were found, then his treatment plan changes and he should be on anticoagulants instead. I had a detailed discussion with his . She is agreeable with the plan. He can continue to follow up with his primary kettle coordinator or if he chooses to come closer since he lives in the area, he can come up and follow up with me. I will leave this to the family. Alternatively, the loop monitor can also be interrogated by his primary kettle coordinator. MMESTEVANL / IJN: [id number] /
--- NOTE | 2017-11-19 12:54 | P.PCN ---
Preoperative Diagnosis: Patient underwent EP procedure under conscious sedation/moderate sedation, monitoring of the level of consciousness and physiologic parameters including but not limited to vital signs and oxygenation. Patient tolerated the procedure well without any acute complications. Start time: 1239 Stop time: 1249
--- NOTE | 2017-11-19 12:55 | P.PCN ---
Preoperative Diagnosis: Loop monitor implant Primary physicians: Dr. Sheila Alicia Lawn Caretaker: Dr. Alcides Reynoso Indication: Cryptogenic stroke, embolic Patient was brought to the EP lab in a fasting state. Written informed consent was obtained prior to the procedure. The left pectoral area was prepped and draped per protocol. Intravenous antibiotic was administered preoperatively. A subcutaneous Loop monitor was implanted successfully and the wound was closed per protocol. The device was programmed to detect significant jess- arrhythmic and tachy-arrhythmic events, per protocol. Device and programming details: Programmed to detect tachycardia, bradycardia and atrial fibrillation Plan Follow-up with Dr. Reynoso in 5 days. Wound to be kept dry for 5 days
== END 2017-11-19 14:07 | disposition home or self-care (01) | DRG 42 ==
LOC: EC 13:55 → 6SEL 15:45
PROVIDERS: ADMIT Internal Medicine; ATTEND Internal Medicine
PROC: 0JH632Z Insertion of Monitoring Device into Chest Subcutaneous Tissue and Fascia, Percutaneous Approach (ICD-10-PCS; principal; 2017-11-19 07:30)
DX: I63.8 Other cerebral infarction (principal); I44.7 Left bundle-branch block, unspecified; E78.5 Hyperlipidemia, unspecified; I65.29 Occlusion and stenosis of unspecified carotid artery; G47.33 Obstructive sleep apnea (adult) (pediatric); I10 Essential (primary) hypertension; I25.10 Atherosclerotic heart disease of native coronary artery without angina pectoris; I25.2 Old myocardial infarction; Z79.82 Long term (current) use of aspirin; Z79.899 Other long term (current) drug therapy; Z82.49 Family history of ischemic heart disease and other diseases of the circulatory system; Z86.73 Personal history of transient ischemic attack (TIA), and cerebral infarction without residual deficits; Z96.653 Presence of artificial knee joint, bilateral
CPT/HCPCS: 33282; 36415; 70450; 70544; 70547; 70551; 71046; 80053; 80061; 84443; 84484; 85025; 85610; 85730; 93005; 93306; 93880; 99285

== ENCOUNTER → 2017-12-09 | Day surgery (SDC) | payer MEDICARE, OTHER ==
[2017-12-07 11:35] VITALS: BMI 29.9
[~2017-12-09] MED LIST: BENZOCAINE SPRAY 1 CAN MUCOUS MEM ONE; MIDAZOLAM 2 MG/2 ML VIAL IV ONE; SODIUM CHLORIDE 0.9% 1,000 ML IV ONE; fentaNYL (PF) 50 MCG/ML 2 ML AMP IV ONE
[2017-12-09 11:54] VITALS: TEMP 98
[2017-12-09 12:43] VITALS: RESP 14
[2017-12-09 14:12] VITALS: BP 122/66; PULSE 58
--- NOTE | 2017-12-09 14:50 | ECHOT ---
TRANSESOPHAGEAL ECHOCARDIOGRAM This transesophageal echocardiogram was performed to evaluate for cardiac thrombi. Patient has a history of a recent ischemic stroke. The patient was given intravenous sedation with Versed and fentanyl and transesophageal echocardiogram was performed without any complications. Left ventricular chamber is normal in size with normal left ventricular systolic function. Mitral valve morphology is normal. Mild thickening of the aortic leaflets noted. Tricuspid valve morphology is normal. There is no evidence of thrombus in left atrial appendage or left atrium. There is no evidence of thrombus in the left ventricular apex. Color Doppler study shows evidence of mild degree of mitral aortic and tricuspid regurgitation. Interatrial septum is intact. There is no evidence of any PFO by saline contrast study. There is evidence of mild atherosclerotic plaque noted in the descending thoracic aorta. FINAL IMPRESSION: 1. There is no definite evidence of any thrombus in left atrium or atrial appendage or left ventricular apex. 2. Left ventricular systolic function is normal. 3. Mild thickening of the aortic leaflets noted. 4. Color Doppler study shows evidence of mild degree of mitral and aortic regurgitation. 5. There is no evidence of any PFO. 6. There is evidence of mild small atherosclerotic plaque noted in the descending thoracic aorta. MMODL / IJN: [id number] /
== END ==
LOC: CATHCVL 11:21
PROVIDERS: ATTEND Internal Medicine Cardiovascular Disease
DX: I69.328 Other speech and language deficits following cerebral infarction (principal); I65.29 Occlusion and stenosis of unspecified carotid artery; I25.10 Atherosclerotic heart disease of native coronary artery without angina pectoris; I44.7 Left bundle-branch block, unspecified; I10 Essential (primary) hypertension; G47.33 Obstructive sleep apnea (adult) (pediatric); Z99.89 Dependence on other enabling machines and devices; I25.2 Old myocardial infarction; Z79.82 Long term (current) use of aspirin; Z79.899 Other long term (current) drug therapy
CPT/HCPCS: 93312; 93320; 93325; J2250; J3010

== ENCOUNTER → 2017-12-17 | Outpatient (CLI) | payer MEDICARE, OTHER ==
--- NOTE | 2017-12-17 19:55 | MR ---
EXAMINATION TYPE: MR brain wo/w con DATE OF EXAM: 12/17/2017 COMPARISON: 11/19/2017 and 11/18/2017 HISTORY: Confusion, Cerebral infarct TECHNIQUE: Multiplanar, multisequence images of the brain and brainstem is performed without and with IV contras t, utilizing 10 mL intravenous Gadavist . FINDINGS: The previously seen involvement of both the bobby-white matter interface within the left par ietal lobe suspected to represent an infarct now demonstrates peripheral more extensive vasogenic katiana ma and is clearly defined as an intra-axial, intracranial mass measuring approximately 1.1 x 2.2 cm o n axial T2 fat sat image 20 and 1.7 cm in craniocaudal dimension on T1 fat-sat postcontrast image 22. This mass demonstrates homogeneous avid enhancement with 2 other smaller foci of enhancement on axia l T1 fat-sat postcontrast image 23 measuring 6 mm and 6 mm as well on image 21. There is peripheral r estricted diffusion within this lesion. Given there is no T1 precontrast hyperintensity to suggest he morrhage. No suspicious extra-axial fluid collection is seen. Again there are multiple foci of T2/FLA IR hyperintensity scattered throughout the periventricular subcortical white matter, some of which ar e confluent. These most likely relate to sequela of chronic microangiopathy. Abnormal enhancement is also seen within the left cerebellar hemisphere in the region of previously questioned developmental venous anomaly. Enhancement is only appreciated centrally within this approximately 1.1 cm lesion on postcontrast image 7 of axial fat-sat T1-weighted sequence and image 8 of T2-weighted axial fat sat i maging. Given the above described neoplasm this finding should also be viewed with suspicion. Moderate mucosal thickening is seen within the ethmoid sinuses and mild within the sphenoid sinuses a s well as the frontal sinuses. Ventricular system and peripheral sulci are symmetrically prominent co mpatible with age-related volume loss. IMPRESSION: 1. Findings are suspicious for neoplasm. The previously seen involvement of the bobby-white matter rufina ction demonstrates homogeneous and avid enhancement and is now well-circumscribed representing an int ra-axial left parietal mass with progressive vasogenic edema in comparison to the prior. Two other ad jacent satellite lesions are seen measuring 6 mm. Considerations are for intracranial metastasis or l ess likely primary brain neoplasm. 2. Infratentorial left cerebral hemisphere punctate focus of enhancement and surrounding T2 hyperinte nsity may represent an additional neoplasm measuring up to 1.1 cm. 3. Redemonstration of moderate burden nonspecific white matter change, most likely related to chronic microangiopathy. A Yellow level critical message alert has been initiated for Cm Bonilla MD via the [employer] Critical Results System on 12/17/2017 7:53 PM. This message alert has been sent to Cm Bonilla MD via the preferences provided by the clinician for the receipt of Radiology Critical Findings. Message ID [id number].
== END | disposition home or self-care (01) ==
LOC: RADMRIMAIN 12:55
PROVIDERS: ATTEND Internal Medicine Geriatric Medicine
DX: R90.89 Other abnormal findings on diagnostic imaging of central nervous system (principal)
CPT/HCPCS: 82565; 70553; 36415; A9581

== ENCOUNTER 2017-12-18 15:00 | Emergency (ER) | payer MEDICARE, OTHER ==
[2017-12-18 15:36] LABS: Glucose,Whole Blood 130 mg/dL (75-99)
[2017-12-18 15:44] LABS: Basophils % (A) 0 %; Eosinophils # (A) 0.1 k/uL (0-0.7); Eosinophils % (A) 2 %; HCT 39.9 % (39.0-53.0); HGB 13.6 gm/dL (13.0-17.5); Lymphocytes # (A) 1.3 k/uL (1.0-4.8); Lymphocytes % (A) 19 %; MCHC 34.2 g/dL (31.0-37.0); MCV 93.5 fL (80.0-100.0); Mean Platelet Volume 7.6; Monocytes # (A) 0.6 k/uL (0-1.0); Monocytes % (A) 9 %; Neutrophils # (A) 4.7 k/uL (1.3-7.7); Neutrophils % (A) 68 %; Platelet Count 236 k/uL (150-450); RBC 4.27 m/uL (4.30-5.90); RDW 12.8 % (11.5-15.5); WBC 6.9 k/uL (3.8-10.6)
[2017-12-18] MEDS ORDERED: DEXAMETHASONE SOD PHOSPHATE 10 MG/ML 1 ML VIAL IV STA (15:45)
[2017-12-18] MEDS ORDERED: levETIRAcetam IV 1,000 MG in SALINE 1 100ML.BAG IVPB STA (15:45)
--- NOTE | 2017-12-18 15:45 | ED ---
General Adult HPI - General Chief complaint: Weakness Stated complaint: poss stroke Time Seen by Provider: 12/18/17 15:11 Source: patient, RN notes reviewed, old records reviewed Mode of arrival: ambulatory Limitations: no limitations - History of Present Illness Initial comments: 81-year-old male presenting with slurred speech. He shouldn't had recent diagnosis of stroke approximately one month ago. He received outpatient MRI yesterday and was called by his primary care physician to present to emergency department for evaluation. Patient was informed that there was possible new stroke. He states his speech had been doing quite well, over the past 24 hours he has had some worsening of his speech. Denies any focal weakness. Denies headache. Denies fever or chills. Denies chest pain or shortness of breath. Patient has follow with neurology as an outpatient. This was a repeat MRI scheduled for December 17. - Related Data Home Medications Medication Instructions Recorded Confirmed Aspirin EC [Ecotrin Low Dose] 81 mg PO DAILY 11/17/17 12/18/17 Atorvastatin [Lipitor] 40 mg PO HS 11/17/17 12/18/17 Carvedilol [Coreg] 6.25 mg PO BID 11/17/17 12/18/17 Cyanocobalamin (Vitamin B-12) 1,000 mcg PO QAM 11/17/17 12/18/17 [Vitamin B-12] Diltiazem Cd [Cardizem CD] 180 mg PO HS 11/17/17 12/18/17 Isosorbide Mononitrate ER [Imdur] 30 mg PO DAILY 11/17/17 12/18/17 Losartan Potassium [Cozaar] 50 mg PO HS 11/17/17 12/18/17 Multivitamins, Thera [Multivitamin 1 tab PO AC-BRKFST 11/17/17 12/18/17 (formulary)] Previous Rx's Medication Instructions Recorded Clopidogrel [Plavix] 75 mg PO DAILY #30 tab 11/19/17 Allergies Allergy/AdvReac Type Severity Reaction Status Date / Time No Known Allergies Allergy Verified 12/18/17 15:43 Review of Systems ROS Statement: Those systems with pertinent positive or pertinent negative responses have been documented in the HPI. ROS Other: All systems not noted in ROS Statement are negative. Past Medical History Past Medical History: Coronary Artery Disease (CAD), Chest Pain / Angina, Hyperlipidemia, Hypertension, Sleep Apnea/CPAP/BIPAP History of Any Multi-Drug Resistant Organisms: None Reported Past Surgical History: Joint Replacement Additional Past Surgical History / Comment(s): CLAUDINE KNEE REPLACEMENT Past Anesthesia/Blood Transfusion Reactions: No Reported Reaction Past Psychological History: No Psychological Hx Reported Smoking Status: Former smoker Past Alcohol Use History: None Reported Past Drug Use History: None Reported - Past Family History Father Family Medical History: Pneumonia, Prostate Disorder Mother Family Medical History: CVA/TIA, Myocardial Infarction ([place]) Daughter(s) Family Medical History: Cancer General Exam Limitations: no limitations General appearance: alert, in no apparent distress Head exam: Present: atraumatic, normocephalic Eye exam: Present: normal appearance, PERRL ENT exam: Present: normal exam Neck exam: Present: normal inspection. Absent: tenderness, meningismus Respiratory exam: Present: normal lung sounds bilaterally, respiratory distress Cardiovascular Exam: Present: regular rate, normal rhythm GI/Abdominal exam: Present: soft. Absent: distended, tenderness Extremities exam: Present: normal inspection, normal capillary refill. Absent: pedal edema Neurological exam: Present: alert, oriented X3, CN II-XII intact, other (Mild dysarthria, NIH of 1). Absent: motor sensory deficit Psychiatric exam: Present: normal affect, normal mood Skin exam: Present: warm, dry, intact. Absent: cyanosis, diaphoretic Course Vital Signs 12/18/17 12/18/17 15:05 15:58 Temperature 97.5 F L Pulse Rate 88 70 Respiratory 18 16 Rate Blood Pressure 165/75 145/74 O2 Sat by Pulse 99 97 Oximetry EKG Findings - EKG Comments: EKG Findings:: EKG: Normal sinus rhythm, ventricular rate 74, CA interval 148, QRS duration 148, QTC 486, there is left bundle branch block, no significant change compared to EKG from one month ago. Medical Decision Making - Medical Decision Making 81-year-old male presenting with slurred speech and outpatient MRI showing multiple brain lesions. There is a parietal mass with progressive vasogenic edema. There is also 2 additional 6 mm lesions concerning for metastasis. Patient does have history of prostate cancer, he is currently being followed by urology at [facility]. Patient is given Decadron and Keppra in the emergency department. He will be transferred to [facility] for further evaluation and treatment. Accepting physician is Dr. Edmonds MRI scan report will be sent with the patient. CBC unremarkable, CMP pending. - Lab Data Result diagrams: 12/18/17 15:20 Lab Results 12/18/17 12/18/17 12/18/17 Range/Units 15:16 15:20 15:20 WBC 6.9 (3.8-10.6) k/uL RBC 4.27 L (4.30-5.90) m/uL Hgb 13.6 (13.0-17.5) gm/dL Hct 39.9 (39.0-53.0) % MCV 93.5 (80.0-100.0) fL MCH 32.0 (25.0-35.0) pg MCHC 34.2 (31.0-37.0) g/dL RDW 12.8 (11.5-15.5) % Plt Count 236 (150-450) k/uL Neutrophils % 68 % Lymphocytes % 19 % Monocytes % 9 % Eosinophils % 2 % Basophils % 0 % Neutrophils # 4.7 (1.3-7.7) k/uL Lymphocytes # 1.3 (1.0-4.8) k/uL Monocytes # 0.6 (0-1.0) k/uL Eosinophils # 0.1 (0-0.7) k/uL Basophils # 0.0 (0-0.2) k/uL PT 9.9 (9.0-12.0) sec INR 1.0 (<1.2) APTT 22.1 (22.0-30.0) sec POC Glucose (mg/dL) 130 H (75-99) mg/dL POC Glu [employer] ID Anatoly Ramirez Disposition Clinical Impression: Lesion of brain, Vasogenic brain edema Disposition: OTHER INSTITUTION NOT DEFINED Condition: Serious Referrals: Cm Bonilla MD [Primary Care Provider] - 1-2 days Time of Disposition: 16:10 - Out of Hospital Transfer - Req. Specs Out of Hospital Transfer - Requested Specifics: Other Emergency Center ( Transfer to [facility])
[2017-12-18 15:55] LABS: Partial Thromboplastin Time 22.1 sec (22.0-30.0); Prothrombin Time 9.9 sec (9.0-12.0)
[2017-12-18 15:59] VITALS: RESP 16
[2017-12-18 16:29] LABS: Albumin 3.8 g/dL (3.5-5.0); Calcium 9.8 mg/dL (8.4-10.2); Potassium 4.5 mmol/L (3.5-5.1); Total Bilirubin 0.7 mg/dL (0.2-1.3); Total Protein 6.5 g/dL (6.3-8.2)
[2017-12-18 16:36] VITALS: BP 133/96; PULSE 69; TEMP 98
== END 2017-12-18 17:30 | disposition other institution (70) ==
LOC: EC 15:00
DX: G93.6 Cerebral edema (principal); I25.119 Atherosclerotic heart disease of native coronary artery with unspecified angina pectoris; E78.5 Hyperlipidemia, unspecified; I10 Essential (primary) hypertension; G47.30 Sleep apnea, unspecified; Z99.89 Dependence on other enabling machines and devices; Z85.46 Personal history of malignant neoplasm of prostate; Z87.891 Personal history of nicotine dependence; Z79.82 Long term (current) use of aspirin; Z79.899 Other long term (current) drug therapy
CPT/HCPCS: 99285; 96374; 96375; 36415; 93005; 80053; 85025; 85610; 85730; J1100; J1953

== ENCOUNTER → 2018-03-19 | Outpatient (CLI) | payer MEDICARE, OTHER ==
--- NOTE | 2018-03-19 12:57 | US ---
EXAMINATION TYPE: US venous doppler duplex LE LT DATE OF EXAM: 03/19/2018 12:40 PM COMPARISON: NONE CLINICAL HISTORY: R60.9 EDEMA. no prev dvt SIDE PERFORMED: left TECHNIQUE: The lower extremity deep venous system is examined utilizing real time linear array sonog sanjiv with graded compression, doppler sonography and color-flow sonography. VESSELS IMAGED: External Iliac Vein (EIV) Common Femoral Vein Deep Femoral Vein Greater Saphenous Vein * Femoral Vein Popliteal Vein Small Saphenous Vein * Proximal Calf Veins (* superficial vessels) Left Leg: neg LLE dvt. Grayscale, color doppler, spectral doppler imaging performed of the deep veins of the lower extremiti es. There is normal flow, compressibility, vascular waveforms. IMPRESSION: No evident deep venous thrombosis at or above the left knee.
== END | disposition home or self-care (01) ==
LOC: RADUSWWP 12:24
PROVIDERS: ATTEND Internal Medicine
DX: R60.9 Edema, unspecified (principal)

== ENCOUNTER → 2020-03-06 | Outpatient (CLI) | payer MEDICARE ==
--- NOTE | 2020-03-07 11:47 | MR ---
EXAMINATION TYPE: MR brain wo/w con DATE OF EXAM: 03/06/2020 COMPARISON: Prior MRI brain December 17, 2017. HISTORY: NETWORK MGR Lymphoma with prior surgery. TECHNIQUE: Multiplanar, multisequence images of the brain and brainstem is performed without and with IV contras t, utilizing 11 mL intravenous Gadavist . FINDINGS: Diffusion weighted images demonstrate no evidence of a recent infarct or other diffusion ab normality. There is no new worrisome extra-axial fluid collection. Diffuse ventricular and sulcal pr ominence is identified with progression from prior study. Areas of T2 hyperintensity seen throughout the white matter greatest periventricular levels are identified. There is new artifact from right fro ntal [employer] shunt catheter terminating in region of right frontal horn. Some encephalomalacia at this lev el is now present. There is additional interval left parietal craniotomy changes with focal area of e ncephalomalacia at this level and cavitary defect axial image 47. Second area of round T2 1 cm hyper intensity left cerebellar hemisphere prior study not clearly identified on current study perhaps succ essful interval treatment? Midline structures demonstrate normal morphology. The craniocervical junction appears within normal limits. Post contrast images demonstrate no new areas of suspicious enhancement. The dural venous si nuses appear patent. The visualized sinuses are clear and the globes are intact. 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 Diffuse cerebral atro phy and chronic small vessel ischemic change with progression from prior MRI. New areas of encephalom alacia related to site of surgery and treatment noted. No new or suspicious residual areas of enhance ment.
== END | disposition home or self-care (01) ==
LOC: RADMRIMAIN 15:31
PROVIDERS: ATTEND Internal Medicine Geriatric Medicine
DX: G31.9 Degenerative disease of nervous system, unspecified (principal); I67.82 Cerebral ischemia; C85.89 Other specified types of non-Hodgkin lymphoma, extranodal and solid organ sites
CPT/HCPCS: 70553; A9585

== ENCOUNTER → 2021-06-12 | Outpatient (CLI) | payer MEDICARE ==
--- NOTE | 2021-06-12 16:20 | CT ---
EXAMINATION TYPE: CT abdomen pelvis wo con DATE OF EXAM: 06/12/2021 COMPARISON: None INDICATION: renal stones DLP: 1099 mGycm, Automated exposure control for dose reduction was used. CONTRAST: 0 mL of Isovue 300. Study performed without Oral Contrast TECHNIQUE: Axial images were obtained from above the diaphragm to the pubic rami in the axial plane a t 5 mm thick sections. Reconstructed images are reviewed on the computer in the coronal plane. FINDINGS: Limited CT sections are obtained the lung bases. The lung bases are clear. Coronary artery calcific ation is noted. CT ABDOMEN: Liver: Normal Spleen: Normal Pancreas: Atrophic with fatty infiltration Adrenal glands: The adrenal glands are normal. Gallbladder: Normal Kidneys: No masses are evident. No hydronephrosis is present. There is a 2.0 cm cyst on the posteri or upper pole left kidney measuring -2 Hounsfield units. Punctate calcification measuring 1 to 2 mm i n the mid posterior right kidney without obstruction. No additional renal stones are evident. No hydr onephrosis or hydroureter is evident. No suspicious ureterovesical junction stones are evident. No ur inary bladder calcifications are evident. Aorta: Vascular calcification is within the aorta. Inferior vena cava: Normal. CT PELVIS: Loops of bowel within the abdomen and pelvis are normal. There are loops of bowel which are incom pletely distended or lack oral contrast limiting their evaluation. Appendix: Not identified. No dilated tubular structure or inflammatory changes are evident. Urinary bladder: Normal. Genitourinary structures: Prostate is prominent Osseous structures: No suspicious lytic or sclerotic lesions. Degenerative disc changes are present t hroughout the lumbar spine. Some osteoarthritic degenerative changes of the bilateral hips. IMPRESSIONS: 1. Nonobstructing punctate right renal stone mid kidney. 2. Left renal cyst.
== END | disposition home or self-care (01) ==
LOC: RADCTMAIN 15:38
PROVIDERS: ATTEND Pediatrics
DX: N20.0 Calculus of kidney (principal); N28.1 Cyst of kidney, acquired
CPT/HCPCS: 74176